=== PATIENT | male | born 1985 | race Caucasian/White ===

== ENCOUNTER 2016-06-25 23:24 | Emergency (ER) | payer MEDICAID ==
--- NOTE | 2016-06-26 00:20 | EDPHY ---
H & P Stated Complaint: on and off headache and back pain for one week Time Seen by Provider: 06/25/16 23:40 HPI/ROS: Chief Complaint: Back pain and headache HPI: 30-year-old male with a history of chronic back pain presenting with 1 week of intermittent left lower back pain which is causing back spasm and some occipital headaches. Denies any fevers or chills. No new numbness, weakness or tingling. No difficulty with urination or having a bowel movement. Has been taking ibuprofen 400 mg every 6 hours with minimal relief. Has a history of narcotic abuse in the past and is requesting no narcotics at this time. Denies any fevers or chills. No IV drug use. Has been ambulating without any difficulty. ROS: 10 point Review of Systems is negative except as noted in the HPI. PMH: L5 disc disease Social History: Positive smoking, no alcohol, no recreational drug use Family History: non-contributory Physical Exam: Gen: Awake, Alert, No Distress HEENT: Nose: no rhinorrhea Eyes: PERRLA, EOMI Mouth: Moist mucosa Neck: Supple, no JVD Chest: nontender, lungs clear to auscultation Heart: S1, S2 normal, no murmur Abd: Soft, non-tender, no guarding Back: no CVA tenderness, no midline tenderness, he has palpable muscle spasm along the left paraspinal muscles from the mid thoracic to the low lumbar. This reproduces his presenting complaint. Ext: no edema, non-tender Skin: no rash Neuro: CN II-XII intact, Sensation grossly intact, Strength 5/5 in bilateral upper and lower extremities - Personal History Current Tetanus/Diphtheria Vaccine: Yes Tetanus Vaccine Date: WITHIN 10 YRS - Medical/Surgical History Hx Asthma: No Hx Chronic Respiratory Disease: No Hx Diabetes: No Hx Cardiac Disease: No Hx Renal Disease: No Hx Cirrhosis: No Hx Alcoholism: No Hx HIV/AIDS: No Hx Splenectomy or Spleen Trauma: No Other PMH: herniated disc - Social History Smoking Status: Light smoker Constitutional: Initial Vital Signs Temperature (C) 36.3 C 06/25/16 23:28 Heart Rate 98 06/25/16 23:28 Respiratory Rate 20 06/25/16 23:28 Blood Pressure 102/64 06/25/16 23:28 O2 Sat (%) 97 06/25/16 23:28 Allergies/Adverse Reactions: No Known Allergies Allergy (Verified 12/23/14 20:53) Home Medications: Medication Instructions Recorded Methocarbamol [Robaxin 750 mg (RX)] 12/23/14 Medical Decision Making Procedures: Procedure note: Trigger point injection, indication, left low back pain. Patient was verbally consented to procedure. The skin was prepped with chlorhexidine prep. At multiple points a total of 20 mL of 0.5% bupivacaine was injected in the paraspinal muscles from the lower thoracic down on the lumbar region. Patient tolerated the procedure well. There is no complications. Performed by me. ED Course/Re-evaluation: Patient presenting with an exacerbation of left lower back pain. He has no red flags for acute cauda equina syndrome. He is completely neurologically intact. I performed a trigger point injection in the left paraspinal muscles with excellent reduction in his pain. Patient tolerated this well and states he is feeling much better. I will discharge him with low back exercises, continue ibuprofen and acetaminophen and follow up with the [facility]. Departure - Departure Disposition: Home, Routine, Self-Care Clinical Impression: Back pain Condition: Good Instructions: Back Pain (ED), Lower Back Exercises (ED) Additional Instructions: You continue alternating ibuprofen with acetaminophen for pain. Apply ice for 15 minutes of every hour while awake for relief. Perform the back exercises as outlined in her discharge instructions. Follow up with the [facility] in 3-4 days for re-evaluation. Referrals: NONE *PRIMARY CARE P,. [Primary Care Provider] - As per Instructions [facility] [Outside] - As per Instructions
[2016-06-26 00:32] VITALS: BP 137/96; PULSE 95; RESP 14; TEMP 97.9; O2SAT 96
== END 2016-06-26 00:31 | disposition home or self-care (01) ==
PROC: 3E023BZ Introduction of Anesthetic Agent into Muscle, Percutaneous Approach (ICD-10-PCS; principal; 2016-06-25)
DX: M54.5 Low back pain (principal); F17.200 Nicotine dependence, unspecified, uncomplicated

== ENCOUNTER 2016-06-30 18:31 | Emergency (ER) | payer MEDICAID ==
[2016-06-30 18:49] VITALS: RESP 16; TEMP 97.9; O2SAT 98
--- NOTE | 2016-06-30 18:59 | EDPHY ---
H & P Stated Complaint: back pain-lumbar no known cause. Time Seen by Provider: 06/30/16 18:50 HPI/ROS: CHIEF COMPLAINT: Lower gluteal pain HISTORY OF PRESENT ILLNESS: Patient is a 31-year-old man who comes to the emergency department complaining of gluteal/sacral pain. he was here a few days ago for which she states was upper back pain and he was given a trigger point injection. Those symptoms resolved. He was feeling better but woke up today complaining of right gluteal/sacral pain. He denies fever or recent trauma. He thinks that he slept on it wrong. it does improves with massage. No bowel or bladder abnormalities. No difficulty ambulating. REVIEW OF SYSTEMS: Constitutional: denies: chills, fever, recent illness, recent injury EENTM: denies: blurred vision, double vision, nose congestion Respiratory: denies: cough, shortness of breath Cardiac: denies: chest pain, irregular heart rate, lightheadedness, palpitations Gastrointestinal/Abdominal: denies: abdominal pain, diarrhea, nausea, vomiting, blood streaked stools Genitourinary: denies: dysuria, frequency, hematuria, pain Musculoskeletal: See HPI Skin: denies: lesions, rash, jaundice, bruising Neurological: denies: headache, numbness, paresthesia, tingling, dizziness, weakness Hematologic/Lymphatic: denies: blood clots, easy bleeding, easy bruising Immunologic/allergic: denies: HIV/AIDS, transplant EXAM: GENERAL: Well-appearing, well-nourished and in no acute distress. HEAD: Atraumatic, normocephalic. EYES: Pupils equal round and reactive to light, extraocular movements intact, sclera anicteric, conjunctiva are normal. ENT: TMs normal, nares patent, oropharynx clear without exudates. Moist mucous membranes. NECK: Normal range of motion, supple without lymphadenopathy or JVD. LUNGS: Breath sounds clear to auscultation bilaterally and equal. No wheezes rales or rhonchi. HEART: Regular rate and rhythm without murmurs, rubs or gallops. ABDOMEN: Soft, nontender, normoactive bowel sounds. No guarding, no rebound. No masses appreciated. BACK: No CVA tenderness, no spinal tenderness, step-offs or deformities right gluteal pain, no tenderness or deformities or swelling. EXTREMITIES: Normal range of motion, no pitting or edema. No clubbing or cyanosis. NEUROLOGICAL: Cranial nerves II through XII grossly intact. Normal speech, normal gait. 5/5 strength, normal movement in all extremities, normal sensation PSYCH: Normal mood, normal affect. SKIN: Warm, dry, normal turgor, no visible rashes or lesions. Source: Patient Exam Limitations: No limitations - Personal History Current Tetanus/Diphtheria Vaccine: Unsure Current Tetanus Diphtheria and Acellular Pertussis (TDAP): Unsure Tetanus Vaccine Date: WITHIN 10 YRS - Medical/Surgical History Hx Asthma: No Hx Chronic Respiratory Disease: No Hx Diabetes: No Hx Cardiac Disease: No Hx Renal Disease: No Hx Cirrhosis: No Hx Alcoholism: No Hx HIV/AIDS: No Hx Splenectomy or Spleen Trauma: No Other PMH: herniated disc. - Family History Significant Family History: No pertinent family hx - Social History Smoking Status: Light smoker Alcohol Use: None Drug Use: None Constitutional: Initial Vital Signs Temperature (C) 36.6 C 06/30/16 18:34 Heart Rate 97 06/30/16 18:34 Respiratory Rate 16 06/30/16 18:34 Blood Pressure 129/76 H 06/30/16 18:34 O2 Sat (%) 98 06/30/16 18:34 O2 Delivery Mode Room Air Allergies/Adverse Reactions: No Known Allergies Allergy (Verified 06/30/16 18:37) Home Medications: Medication Instructions Recorded Lidocaine 5% [Lidoderm 5% Patch 1 ea TD DAILY #5 patch 06/30/16 (*)] Medical Decision Making ED Course/Re-evaluation: The patient has right upper gluteal pain. I am suspicious of sacroiliitis versus muscle strain. I will treat him with a Lidoderm patch . He denies trauma does not wish to have any x-rays. He does asked me to sign his form from correctional facilities. Differential Diagnosis: Partial list of the Differential diagnosis considered include but were not limited to; muscle strain, sacroiliitis, prostatitis, and although unlikely based on the history and physical exam, I also considered kidney stone, urinary tract infection, hernia, abscess, hemorrhoid. I discussed these differential diagnoses and the plan with the patient as well as the usual and expected course. The patient understands that the diagnosis is provisional and that in medicine we are not always correct and that further workup is often warranted. Usual and customary warnings were given. All of the patient's questions were answered. The patient was instructed to return to the emergency department should the symptoms at all worsen or return, otherwise to followup with the physician as we discussed. - Data Points Medications Given: Discontinued Medications Lidocaine (Lidoderm 5%) 1 ea TD DAILY JOSE D Stop: 12/27/16 18:59 Last Admin: 06/30/16 19:44 Dose: 1 ea Departure - Departure Disposition: Home, Routine, Self-Care Clinical Impression: Gluteal pain Condition: Fair Instructions: Sacroiliitis (ED) Referrals: NONE *PRIMARY CARE P,. [Primary Care Provider] - As per Instructions Prescriptions: Lidocaine 5% [Lidoderm 5% Patch (*)] 1 ea TD DAILY #5 patch
[2016-06-30] MEDS ORDERED: LIDOCAINE 5% 1 EA PATCH TD SCH (19:00)
[2016-06-30 19:45] VITALS: BP 125/89; PULSE 95
[2016-06-30] MEDS ORDERED: PATCH REMOVAL 1 EA PATCH TD SCH (21:00)
== END 2016-06-30 19:45 | disposition home or self-care (01) ==
DX: M53.3 Sacrococcygeal disorders, not elsewhere classified (principal); F17.200 Nicotine dependence, unspecified, uncomplicated

== ENCOUNTER 2016-07-06 14:01 | Emergency (ER) | payer MEDICAID ==
--- NOTE | 2016-07-06 14:04 | EDPHY ---
H & P Time Seen by Provider: 07/06/16 14:04 - Personal History Tetanus Vaccine Date: WITHIN 10 YRS - Medical/Surgical History Hx Asthma: No Hx Chronic Respiratory Disease: No Hx Diabetes: No Hx Cardiac Disease: No Hx Renal Disease: No Hx Cirrhosis: No Hx Alcoholism: No Hx HIV/AIDS: No Hx Splenectomy or Spleen Trauma: No Other PMH: herniated disc. - Social History Smoking Status: Light smoker Constitutional: Initial Vital Signs Temperature (C) 36.8 C 07/06/16 14:05 Heart Rate 115 H 07/06/16 14:05 Respiratory Rate 16 07/06/16 14:05 Blood Pressure 119/89 H 07/06/16 14:05 O2 Sat (%) 99 07/06/16 14:05 Allergies/Adverse Reactions: No Known Allergies Allergy (Verified 06/30/16 18:37) Home Medications: Medication Instructions Recorded Lidocaine 5% [Lidoderm 5% Patch 1 ea TD DAILY #5 patch 06/30/16 (*)] Diclofenac Sodium [Voltaren 50 MG 50 mg PO BID #20 tab 07/06/16 (*)] Diclofenac Sodium/Capsaicin 1 each MC TID #7 kit 07/06/16 [Nudiclo Tabpak] Medical Decision Making ED Course/Re-evaluation: CHIEF COMPLAINT: Back pain. HISTORY OF PRESENT ILLNESS: The patient is a 31-year-old male with a history of chronic back pain and L5 injury who presents with thoracic back pain. He has been seen in the hospital multiple times for these complaints and has received trigger point injections and lidocaine treatment to no effect. He has not seen a back specialist for these complaints. He does have some mild ongoing paresthesias in his left foot. He denies other numbness, weakness, or other complaints. REVIEW OF SYSTEMS: A 10 point review of systems was performed and is negative with the exception of the elements mentioned in the history of present illness. PHYSICAL EXAM: HR, BP, O2 Sat, RR. Temp noted General Appearance: Alert, well hydrated, appropriate, and non-toxic appearing. Head: Atraumatic without scalp tenderness or obvious injury Eyes: Pupils equal, round, reactive to light and accommodation, EOMI, no trauma , no injection. Ears: Clear bilaterally, no perforation, normal landmarks Nose: Atraumatic, no rhinorrhea, clear. Throat: There is no erythema or exudates, no lesions, normal tonsils, mucus membranes moist. Neck: Supple, 2+ carotid upstroke, nontender, no lymphadenopathy. Respiratory: No retractions, no distress, no wheezes, and no accessory muscle use. Lungs are clear to auscultation bilaterally. Cardiovascular: Regular rate and rhythm, no murmurs, rubs, or gallops. Bilateral carotid, radial, dorsalis pedis, and posterior tibial pulses intact. Good capillary refill all extremities. Gastrointestinal: Abdomen is soft, nontender, non-distended, no masses, no rebound, no guarding, no peritoneal signs. Musculoskeletal: Normal active ROM of all extremities, atraumatic. Neurological: Alert, appropriate, and interactive. The patient has normal DTRs and non-focal cranial nerves, motor, sensory, and cerebellar exam. Skin: No rashes, good turgor, no nodules on palpation. Past medical history: Herniated disc. Past surgical history: N/A. Family history: N/A. Social history: Here alone. DIFFERENTIAL DIAGNOSIS: The differential diagnosis for the patient's back pain included but was not limited to musculo-skeletal pain, epidural abscess, herniated disk, spinal fracture, and intra-abdominal causes including urinary system. MEDICAL DECISION MAKIN-year-old male presents with thoracic back. He has been seen in the emergency department twice recently, receiving trigger-point injections and a lidocaine patch to no effect. He is complaining of mild left foot paresthesias which I believe are from his previous lumbar injury. He has not seen a back specialist for all of his back problems. He admits no new traumas or injuries to his back today. I have referred him to Dr. Ríos, physimargarita. He will also be discharged with Diclofenac prescription and Voltaren-capsaicin cream to round out his back pain treatment kit. Departure - Departure Disposition: Home, Routine, Self-Care Clinical Impression: Thoracic back pain Qualifiers: Chronicity: chronic Back pain laterality: midline Qualified Code(s): M54.6 - Pain in thoracic spine Condition: Good Instructions: Back Pain (ED) Additional Instructions: Call Dr. Ríos, physiatry, tomorrow to set up a follow up appointment. Take Diclofenac as prescribed. Use the pain relief cream as instructed. Return to the emergency department if you experience any serious worsening of condition. Referrals: Alex Ríos MD [Medical Doctor] - As per Instructions Prescriptions: Diclofenac Sodium [Voltaren 50 MG (*)] 50 mg PO BID #20 tab Diclofenac Sodium/Capsaicin [Nudiclo Tabpak] 1 each MC TID #7 kit Report Scribed for: Alonso Koenig Report Scribed by: Ky Kay Date of Report: 07/06/16 Time of Report: 14:11
[2016-07-06 14:09] VITALS: BP 119/89; PULSE 115; RESP 16; TEMP 98.2; O2SAT 99
== END 2016-07-06 14:34 | disposition home or self-care (01) ==
DX: M54.6 Pain in thoracic spine (principal); F17.200 Nicotine dependence, unspecified, uncomplicated; G89.29 Other chronic pain

== ENCOUNTER 2016-10-30 23:12 | Emergency (ER) | payer MEDICAID ==
[2016-10-30 23:17] VITALS: BP 134/76; PULSE 128; RESP 16; TEMP 98.8; O2SAT 95
--- NOTE | 2016-10-30 23:42 | EDPHY ---
H & P Time Seen by Provider: 10/30/16 23:30 HPI/ROS: CHIEF COMPLAINT: Dizziness lightheadedness HISTORY OF PRESENT ILLNESS: This is a 31-year-old male presenting to the emergency department reports standing outside of [employer] yesterday around noon during job orientation while smoking a cigarette he passed out. Unknown how long he was on the ground, patient states he got up noticed to cigarette was on the ground with feeling lightheaded. Patient states after the episode he walked home and since yesterday has been feeling intermittent lightheadedness out of sorts, he also reported intermittent left anterior chest pain x2 days prior to the passing out. Patient states not likely seizure. Denies any headache no shortness of breath. Patient is a smoker 7 cigarettes daily times 10 years, denies any alcohol or drugs REVIEW OF SYSTEMS: Constitutional: No fever, no chills. No changes in PO intake Eyes: No discharge. No blurred vision ENT: No sore throat. Cardiovascular: Intermittent chest pain, no palpitations. Respiratory: No cough, no shortness of breath. Gastrointestinal: No abdominal pain, no vomiting. No nausea no diarrhea Genitourinary: No hematuria. Musculoskeletal: No back pain. Skin: No rashes. Neurological: No headache. Dizziness Smoking Status: Heavy smoker Physical Exam: General Appearance: Alert, no distress. S non ill-appearing nontoxic Eyes: Pupils equal and round no pallor or injection. ENT, Mouth: Mucous membranes moist. Respiratory: There are no retractions, lungs are clear to auscultation. Cardiovascular: Tachycardic no murmurs or gallops Gastrointestinal: Abdomen is soft and nontender, no masses, bowel sounds normal. Neurological: No focal deficits. Answering questions appropriately Skin: Warm and dry, no rashes. No pallor Musculoskeletal: Neck is supple nontender. Extremities: symmetrical, full range of motion. Psychiatric: Patient is oriented X 3, acting appropriately . Constitutional: Initial Vital Signs Temperature (C) 37.1 C 10/30/16 23:14 Heart Rate 128 H 10/30/16 23:14 Respiratory Rate 16 10/30/16 23:14 Blood Pressure 134/76 H 10/30/16 23:14 O2 Sat (%) 95 10/30/16 23:14 O2 Delivery Mode Room Air Allergies/Adverse Reactions: No Known Allergies Allergy (Verified 10/30/16 23:17) Home Medications: Medication Instructions Recorded Sertraline HCl 10/30/16 hydrOXYzine HCL [hydrOXYzine HCL 25 mg PO 10/30/16 (RX)] Medical Decision Making ED Course/Re-evaluation: Discussed ED plan of care: CBC, CMP, UA, EKG, troponin. 1 L normal saline 0005: EKG sinus rhythm no ectopy heart rate 85 0030: Patient re-evaluated, denies any dizziness any lightheadedness no chest pain not in any distress. 2nd L normal saline given. 0130: The patient re-evaluation---> stable, patient reports feeling better no dizziness no lightheadedness. Discharge home, discussed all discharge instructions with patient Differential Diagnosis: Other differential diagnosis considered but not limited to electrolyte abnormality, abnormal EKG, seizure - Data Points Laboratory Results: Laboratory Results 10/30/16 23:45 10/30/16 23:45 10/31/16 10/30/16 10/30/16 00:00 23:45 23:45 WBC 10.36 10^3/uL H 10^3/uL (3.80-9.50) RBC 5.08 10^6/uL 10^6/uL (4.40-6.38) Hgb 15.4 g/dL g/dL (13.7-17.5) Hct 44.4 % % (40.0-51.0) MCV 87.4 fL fL (81.5-99.8) MCH 30.3 pg pg (27.9-34.1) MCHC 34.7 g/dL g/dL (32.4-36.7) RDW 12.3 % % (11.5-15.2) Plt Count 270 10^3/uL 10^3/uL (150-400) MPV 9.4 fL fL (8.7-11.7) Neut % (Auto) 65.9 % % (39.3-74.2) Lymph % (Auto) 24.8 % % (15.0-45.0) Iron % (Auto) 7.7 % % (4.5-13.0) Eos % (Auto) 0.7 % % (0.6-7.6) Baso % (Auto) 0.6 % % (0.3-1.7) Nucleat RBC Rel Count 0.0 % % (0.0-0.2) Absolute Neuts (auto) 6.83 10^3/uL H 10^3/uL (1.70-6.50) Absolute Lymphs (auto) 2.57 10^3/uL 10^3/uL (1.00-3.00) Absolute Monos (auto) 0.80 10^3/uL 10^3/uL (0.30-0.80) Absolute Eos (auto) 0.07 10^3/uL 10^3/uL (0.03-0.40) Absolute Basos (auto) 0.06 10^3/uL 10^3/uL (0.02-0.10) Absolute Nucleated RBC 0.00 10^3/uL 10^3/uL (0-0.01) Immature Gran % 0.3 % % (0.0-1.1) Immature Gran # 0.03 10^3/uL 10^3/uL (0.00-0.10) Sodium 145 mEq/L H mEq/L (134-144) Potassium 4.1 mEq/L mEq/L (3.5-5.2) Chloride 110 mEq/L mEq/L (97-110) Carbon Dioxide 19 mEq/l L mEq/l (22-31) Anion Gap 16 mEq/L mEq/L (8-16) BUN 18 mg/dL mg/dL (7-23) Creatinine 1.3 mg/dL mg/dL (0.7-1.3) Estimated GFR > 60 Glucose 116 mg/dL H mg/dL (70-100) Calcium 10.1 mg/dL mg/dL (8.5-10.4) Total Bilirubin 0.8 mg/dL mg/dL (0.1-1.4) AST 22 IU/L IU/L (17-59) ALT 27 IU/L IU/L (21-72) Alkaline Phosphatase 91 IU/L IU/L (38-126) Troponin I < 0.012 ng/mL ng/mL (0-0.034) Total Protein 7.8 g/dL g/dL (6.3-8.2) Albumin 4.7 g/dL g/dL (3.5-5.0) Urine Color YELLOW Urine Appearance CLEAR Urine pH 5.0 (5.0-7.5) Ur Specific [place] 1.018 (1.002-1.030) Urine Protein NEGATIVE (NEGATIVE) Urine Ketones 1+ H (NEGATIVE) Urine Blood NEGATIVE (NEGATIVE) Urine Nitrate NEGATIVE (NEGATIVE) Urine Bilirubin NEGATIVE (NEGATIVE) Urine Urobilinogen NEGATIVE EU EU (0.2-1.0) Ur Leukocyte Esterase NEGATIVE (NEGATIVE) Urine Glucose NEGATIVE (NEGATIVE) Urine Opiates Screen NON-NEGATIVE H (NEGATIVE) Urine Barbiturates NEGATIVE (NEGATIVE) Ur Phencyclidine Scrn NEGATIVE (NEGATIVE) Ur Amphetamine Screen NON-NEGATIVE H (NEGATIVE) U Benzodiazepines Scrn NEGATIVE (NEGATIVE) Urine Cocaine Screen NEGATIVE (NEGATIVE) U Marijuana (THC) Screen NEGATIVE (NEGATIVE) Medications Given: Discontinued Medications Sodium Chloride (Ns) 1,000 mls @ 3,000 mls/hr IV ONCE ONE Stop: 10/31/16 00:19 Last Admin: 10/31/16 00:01 Dose: 1,000 mls Sodium Chloride (Ns) 1,000 mls @ 0 mls/hr IV ONCE ONE PRN Reason: Wide Open Stop: 10/31/16 00:54 Last Admin: 10/31/16 01:26 Dose: 1,000 mls Departure - Departure Disposition: Home, Routine, Self-Care Clinical Impression: Syncope Qualifiers: Syncope type: unspecified Qualified Code(s): R55 - Syncope and collapse Heat exhaustion Qualifiers: Encounter type: initial encounter Qualified Code(s): T67.5XXA - Heat exhaustion , unspecified, initial encounter Condition: Good Instructions: Syncope (ED), Lightheadedness (ED) Additional Instructions: 1. rest, increase fluid intake 2. Make sure you are staying hydrated while your out in the heat and riding a bike 3. Follow up with primary care provider as needed 4. If any symptoms worsen, such as: Increased chest pain, passing out return to the ER Referrals: NONE *PRIMARY CARE P,. [Primary Care Provider] - As per Instructions [facility],. [Clinic] - As per Instructions
[2016-10-30 23:55] LABS: % IMMATURE GRANULYOCYTES 0.3 % (0.0-1.1); ABSOLUTE IMMATURE GRANULOCYTES 0.03 10^3/uL (0.00-0.10); ADD DIFF? NO; ADD MORPH? NO; ADD SCAN? NO; ATYPICAL LYMPHOCYTE FLAG 0 (0-99); FRAGMENT RBC FLAG 0 (0-99); HEMATOCRIT 44.4 % (40.0-51.0); HEMOGLOBIN 15.4 g/dL (13.7-17.5); LEFT SHIFT FLG 0 (0-99); LIPEMIA HEMOLYSIS FLAG 90 (0-99); MEAN CELL HEMOGLOBIN 30.3 pg (27.9-34.1); MEAN CELL HEMOGLOBIN CONCENTR. 34.7 g/dL (32.4-36.7); MEAN CELL VOLUME 87.4 fL (81.5-99.8); MEAN PLATELET VOLUME 9.4 fL (8.7-11.7); PLATELET CLUMPS FLAG 0 (0-99); PLATELET COUNT 270 10^3/uL (150-400); RED BLOOD CELL COUNT 5.08 10^6/uL (4.40-6.38); RED CELL DISTRIBUTION WIDTH 12.3 % (11.5-15.2)
[2016-10-31 00:13] LABS: ALANINE AMINOTRANSFERASE 27 IU/L (21-72); ALBUMIN 4.7 g/dL (3.5-5.0); ALKALINE PHOSPHATASE 91 IU/L (38-126); ANION GAP 16 mEq/L (8-16); ASPARTATE AMINOTRANSFERASE 22 IU/L (17-59); BILIRUBIN,TOTAL 0.8 mg/dL (0.1-1.4); CALCIUM 10.1 mg/dL (8.5-10.4); CARBON DIOXIDE 19 mEq/l (22-31); CHLORIDE 110 mEq/L (97-110); CREATININE 1.3 mg/dL (0.7-1.3); GLOMERULAR FILTRATION RATE > 60; GLUCOSE 116 mg/dL (70-100); POTASSIUM 4.1 mEq/L (3.5-5.2); SODIUM 145 mEq/L (134-144); TOTAL PROTEIN 7.8 g/dL (6.3-8.2)
[2016-10-31 00:24] LABS: TROPONIN I < 0.012 ng/mL (0-0.034)
[2016-10-31] MEDS ORDERED: NS 1,000 ML IV ONE ×2 (00:53)
[2016-10-31 01:12] LABS: COLOR YELLOW; LEUKOCYTE ESTERASE,URINE NEGATIVE (NEGATIVE); NITRITE,URINE NEGATIVE (NEGATIVE)
--- NOTE | 2016-10-31 04:45 | CPEKG ---
Heart Rate: 85 RR Interval: 706 P-R Interval: 152 QRSD Interval: 90 QT Interval: 360 QTC Interval: 428 P Hugo: 72 QRS Hugo: 52 T Wave Hugo: 44 EKG Severity - NORMAL ECG - EKG Impression: SINUS RHYTHM Electronically Signed By: Tony Bridges 31-Oct-2016 16:08:57
== END 2016-10-31 02:18 | disposition home or self-care (01) ==
DX: R55 Syncope and collapse (principal); T67.5XXA Heat exhaustion, unspecified, initial encounter; F17.210 Nicotine dependence, cigarettes, uncomplicated
CPT/HCPCS: 80305